=== PATIENT | male | born 1950 | race Two or more races ===

== ENCOUNTER → 2024-05-31 | Outpatient (CLI) | payer OTHER, SELFPAY ==
[2024-05-31 08:25] LABS: Basophils % (Auto) 1 % (0-2.5); Eosinophils # (Auto) 0.2 Thou/mm3 (0.0-0.5); Eosinophils % (Auto) 2 % (0-10); Hematocrit 37.5 % (41.0-53.0); Hemoglobin 12.5 g/dL (13.5-16.0); Immature Granulocytes % (Auto) 0 % (0-0); Immature Granulocytes Auto 0.02 Thou/mm3 (0.00-0.00); Lymphocytes # (Auto) 2.4 Thou/mm3 (1.0-4.8); Lymphocytes % (Auto) 38 % (10-50); Mean Corpuscular HGB Conc 33.3 g/dl (31.0-37.0); Mean Corpuscular Volume 87 fL (80-100); Monocytes # (Auto) 0.6 Thou/mm3 (0.0-0.8); Monocytes % (Auto) 10 % (0-12); Neutrophils # (Auto) 3.1 Thou/mm3 (1.8-7.7); Neutrophils % (Auto) 49 % (37-80); Nucleated Red Blood Cell % 0 /100 WBC (0); Platelet Count 207 Thou/mm3 (140-440); RDW Standard Deviation 42.1 fL (35.1-43.9); Red Blood Count 4.31 Miln/mm3 (4.50-5.90); White Blood Count 6.4 Thou/mm3 (3.8-10.6)
[2024-05-31 08:38] LABS: Glucose Estimated Average 137 mg/dL (80-131); Hemoglobin A1C 6.4 % Hgb (4.8-6.0)
[2024-05-31 08:48] LABS: Creatinine MALB Rnd Ur 70 mg/dL (30-125); Microalbumin, Random Urine < 3 mg/L (0-300)
[2024-05-31 08:52] LABS: Alanine Aminotransferase 15 U/L (10-49); Albumin, Serum 4.3 gm/dL (3.4-4.8); Albumin/Globulin Ratio 1.9 (1.2-2.2); Alkaline Phosphatase 133 U/L (46-116); Anion Gap 7 (7-16); Aspartate Amino Transferase 18 U/L (0-34); BUN/Creatinine Ratio 15 Ratio (12-20); Bilirubin,Total 0.6 mg/dL (0.3-1.2); Blood Urea Nitrogen 17 mg/dL (9-23); Calcium 9.6 mg/dL (8.3-10.6); Calcium (Corrected) 9.6 mg/dL (8.5-10.1); Carbon Dioxide 30.9 mMol/L (20.0-31.0); Cardiac Risk Estimate 3.9 RATIO (4.0-6.7); Chloride 101 mMol/L (98-107); Cholesterol 166 mg/dL (132-200); Creatinine (Component) 1.1 mg/dL (0.6-1.3); Globulin 2.3 gm/dL (2.3-3.5); Glucose 111 mg/dL (74-106); HDL Cholesterol 43 mg/dL (40-60); LDL Cholesterol,Calculated 68 mg/dL (0-130); Osmolality,Calculated 280 (275-295); Potassium 3.9 mMol/L (3.4-5.1); Sodium 139 mMol/L (136-145); Thyroid Stimulating Hormone 0.95 uIU/mL (0.55-4.78); Total Protein 6.6 gm/dL (5.7-8.2); Triglycerides 273 mg/dL (30-150); eGFR > 60 See Note
== END | disposition home or self-care (01) ==
PROVIDERS: PCP Nurse Practitioner Family; Referring Provider Nurse Practitioner Family; Visit Provider Nurse Practitioner Family
DX: Z00.00 Encounter for general adult medical examination without abnormal findings (principal); E78.2 Mixed hyperlipidemia; Z79.899 Other long term (current) drug therapy
CPT/HCPCS: 36415; 80053; 80061; 82043; 82570; 83036; 84443; 85025

== ENCOUNTER → 2024-08-13 | Outpatient (CLI) | payer OTHER, SELFPAY ==
[2024-08-13 10:48] LABS: Prostate Specific Antigen 0.27 ng/mL (0-4.00)
== END | disposition home or self-care (01) ==
LOC: COPL 09:10
PROVIDERS: PCP Nurse Practitioner Family; Referring Provider Urology; Visit Provider Urology
DX: N40.1 Benign prostatic hyperplasia with lower urinary tract symptoms (principal)
CPT/HCPCS: 36415; 84153

== ENCOUNTER → 2024-09-07 | Outpatient (BNVA) | payer OTHER, SELFPAY | END | disposition home or self-care (01) | PROVIDERS: PCP Nurse Practitioner Family; Referring Provider Nurse Practitioner Family; Visit Provider Urology | DX: N40.1 Benign prostatic hyperplasia with lower urinary tract symptoms (principal); N13.8 Other obstructive and reflux uropathy; Z87.440 Personal history of urinary (tract) infections; I10 Essential (primary) hypertension; I25.10 Atherosclerotic heart disease of native coronary artery without angina pectoris; E66.9 Obesity, unspecified; Z68.26 Body mass index [BMI] 26.0-26.9, adult; E78.00 Pure hypercholesterolemia, unspecified; I25.2 Old myocardial infarction; K21.9 Gastro-esophageal reflux disease without esophagitis | CPT/HCPCS: 81003; 99212; G0463 ==

== ENCOUNTER → 2024-09-15 | Outpatient (CLI) | payer OTHER, SELFPAY ==
[2024-09-15 08:06] LABS: Collection Type, Urine Clean Catch; Squamous Epithelial Cell,Urine 0 /hpf (0-5)
[2024-09-15 08:33] LABS: Basophils % (Auto) 1 % (0-2.5); Eosinophils # (Auto) 0.1 Thou/mm3 (0.0-0.5); Eosinophils % (Auto) 2 % (0-10); Hematocrit 36.3 % (41.0-53.0); Hemoglobin 12.3 g/dL (13.5-16.0); Immature Granulocytes % (Auto) 0 % (0-0); Immature Granulocytes Auto 0.01 Thou/mm3 (0.00-0.00); Lymphocytes # (Auto) 2.3 Thou/mm3 (1.0-4.8); Lymphocytes % (Auto) 36 % (10-50); Mean Corpuscular HGB Conc 33.9 g/dl (31.0-37.0); Mean Corpuscular Volume 86 fL (80-100); Monocytes # (Auto) 0.5 Thou/mm3 (0.0-0.8); Monocytes % (Auto) 8 % (0-12); Neutrophils # (Auto) 3.5 Thou/mm3 (1.8-7.7); Neutrophils % (Auto) 54 % (37-80); Nucleated Red Blood Cell % 0 /100 WBC (0); Platelet Count 183 Thou/mm3 (140-440); RDW Standard Deviation 46.1 fL (35.1-43.9); Red Blood Count 4.24 Miln/mm3 (4.50-5.90); White Blood Count 6.4 Thou/mm3 (3.8-10.6)
[2024-09-15 08:35] LABS: Bilirubin,Urine Negative (Negative); Blood,Urine Negative (Negative); Clarity,Urine Clear (Clear/Hazy); Color,Urine Lt-Yellow (Lt Yel-Yel); Glucose, Urine Negative (Negative); Ketones,Urine Negative (Negative); Leukocyte Esterase,Urine Negative (Negative); Nitrite,Urine Negative (Negative); Protein,Urine Negative (Neg - Trace); RBC,Urine 1 /hpf (0-3); Specific Gravity,Urine 1.016 (1.001-1.035); Urobilinogen,Urine Negative mg/dL (0.0-1.0); WBC,Urine < 1 /hpf (0-5)
[2024-09-15 09:33] LABS: Glucose Estimated Average 134 mg/dL (80-131); Hemoglobin A1C 6.3 % Hgb (4.8-6.0)
[2024-09-15 09:34] LABS: Creatinine MALB Rnd Ur 68 mg/dL (30-125); Creatinine,Random Urine 68 mg/dL (30-125); Microalbumin, Random Urine < 3 mg/L (0-300)
[2024-09-15 09:53] LABS: Alanine Aminotransferase 16 U/L (10-49); Albumin, Serum 4.1 gm/dL (3.4-4.8); Albumin/Globulin Ratio 1.6 (1.2-2.2); Alkaline Phosphatase 117 U/L (46-116); Anion Gap 9 (7-16); Aspartate Amino Transferase 22 U/L (0-34); BUN/Creatinine Ratio 19 Ratio (12-20); Bilirubin,Total 0.9 mg/dL (0.3-1.2); Blood Urea Nitrogen 19 mg/dL (9-23); Carbon Dioxide 28.1 mMol/L (20.0-31.0); Cardiac Risk Estimate 3.1 RATIO (4.0-6.7); Chloride 105 mMol/L (98-107); Cholesterol 165 mg/dL (132-200); Globulin 2.5 gm/dL (2.3-3.5); Glucose 91 mg/dL (74-106); HDL Cholesterol 54 mg/dL (40-60); LDL Cholesterol,Calculated 76 mg/dL (0-130); Osmolality,Calculated 285 (275-295); Potassium 4.6 mMol/L (3.4-5.1); Sodium 142 mMol/L (136-145); Thyroid Stimulating Hormone 1.08 uIU/mL (0.55-4.78); Total Protein 6.6 gm/dL (5.7-8.2); Triglycerides 175 mg/dL (30-150); eGFR > 60 See Note
== END | disposition home or self-care (01) ==
LOC: COPL 07:27
PROVIDERS: PCP Nurse Practitioner Family; Referring Provider Nurse Practitioner Family; Visit Provider Nurse Practitioner Family
DX: E11.65 Type 2 diabetes mellitus with hyperglycemia (principal); E78.2 Mixed hyperlipidemia; Z79.899 Other long term (current) drug therapy
CPT/HCPCS: 36415; 80053; 80061; 81001; 82043; 82570; 83036; 84443; 85025

== ENCOUNTER 2024-11-23 07:05 | Day surgery (SDC) | payer OTHER, MEDICAID, SELFPAY ==
--- NOTE | 2024-11-22 07:00 | EKG_ITS ---
[facility] Test Date: 2024-11-23 Pat Name: OSCAR HOUSER Department: Room: - Gender: Male Diabetes Physician: : 1950 Requested By: Alexis Cota Order Number: [id number] Reading MD: Alexis Cota Measurements Intervals Dema Rate: 65 P: 34 CO: 183 QRS: -15 QRSD: 95 T: 49 QT: 422 QTc: 442 Interpretive Statements SINUS RHYTHM INFERIOR MYOCARDIAL INFARCTION , PROBABLY OLD Compared to ECG 10/31/2022 18:27:25 Myocardial infarct finding now present Ventricular premature complex(es) no longer present ST (T wave) deviation no longer present /store/S0/[id number]/ecg/[id number].pdf
[2024-11-23] VITALS (27 sets, daily range): BP systolic 115–162; BP diastolic 60–89; PULSE 50–75; RESP 12–20; TEMP 36.2–36.8; O2SAT 95–99; BMI 38.2
[2024-11-23 07:30] LABS: Basophils % (Auto) 0 % (0-2.5); Eosinophils # (Auto) 0.1 Thou/mm3 (0.0-0.5); Eosinophils % (Auto) 1 % (0-10); Hematocrit 39.3 % (41.0-53.0); Hemoglobin 13.2 g/dL (13.5-16.0); Immature Granulocytes % (Auto) 1 % (0-0); Immature Granulocytes Auto 0.06 Thou/mm3 (0.00-0.00); Lymphocytes # (Auto) 2.8 Thou/mm3 (1.0-4.8); Lymphocytes % (Auto) 39 % (10-50); Mean Corpuscular HGB Conc 33.6 g/dl (31.0-37.0); Mean Corpuscular Hemoglobin 29.7 pg (25.0-35.0); Mean Corpuscular Volume 88 fL (80-100); Monocytes # (Auto) 0.6 Thou/mm3 (0.0-0.8); Monocytes % (Auto) 8 % (0-12); Neutrophils # (Auto) 3.7 Thou/mm3 (1.8-7.7); Neutrophils % (Auto) 51 % (37-80); Nucleated Red Blood Cell % 0 /100 WBC (0); Platelet Count 190 Thou/mm3 (140-440); RDW Standard Deviation 45.8 fL (35.1-43.9); Red Blood Count 4.45 Miln/mm3 (4.50-5.90); White Blood Count 7.2 Thou/mm3 (3.8-10.6)
[2024-11-23 07:42] LABS: Anion Gap 9 (7-16); BUN/Creatinine Ratio 14 Ratio (12-20); Blood Urea Nitrogen 14 mg/dL (9-23); Calcium 9.1 mg/dL (8.3-10.6); Carbon Dioxide 29.2 mMol/L (20.0-31.0); Chloride 106 mMol/L (98-107); Estimated Creatinine Clearance 50.6 mL/min (>60); Glucose 123 mg/dL (74-106); Osmolality,Calculated 288 (275-295); Potassium 4.2 mMol/L (3.4-5.1); Sodium 144 mMol/L (136-145); eGFR > 60 See Note
[2024-11-23 09:45] LABS: Partial Thromboplastin Time 29.3 Seconds (22.0-36.0); Prothrombin Time 10.9 Seconds (9.0-12.2)
--- NOTE | 2024-11-23 14:48 | PC.NURSE ---
1015 patient is awake, alert, breathing unlabored, s/p LHC by Dr. Ramirez, arterial sheath present to right groin, no bleeding noted. Report received from Darwin SHEIKH, patient to to recover for 6 hours post hemostasis time. ACT to be checked at 1130, ok to remove sheath once ACT less than 150. Patient already takes aspirin at home and can continue aspirin tomorrow, new medication brilinta will be called in by MD, first dose to be started tonight and twice a day starting tomorrow. 1140 ACT 183 1221 ACT 167, Dr. Ramirez notified, ok to remove right groin arterial sheath 1229 arterial sheath removed, manual pressure removed 1249 manual pressure removed, hemostasis obtained, site covered with gauze and tegaderm, no active bleeding or hematoma noted, sandbag applied. 1335 sand bag removed, no bleeding or hematoma noted to right groin, report given to darwin SHEIKH 1420 report received from Darwin SHEIKH, dressing to right groin dry with no bleeding or hematoma
--- NOTE | 2024-11-23 18:51 | PC.NURSE ---
1849 patient is awake, alert, breathing unlabored, dressing to right groin dry with no bleeding or hematoma, patient able to tolerate lunch and dinner tray with no nausea or vomiting, able to ambulate to bathroom and void, meet discharge criteria, discharge instructions given to patient, and daughter via vincentian interprter, patient discharged home in wheelchair with all belongings.
--- NOTE | 2024-11-24 01:36 | ESOP_ITS ---
RE: OSCAR HOUSER : 1950 DATE OF OPERATION: 11/23/2024 PROCEDURE PERFORMED: 1. Diagnostic left heart cardiac catheterization and selective coronary angiogram and left ventricular angiogram, CPT 77416. 2. Selective cannulation of left internal mammary artery and left internal mammary artery angiography, CPT 48669. 3. PTCA and percutaneous transluminal coronary angioplasty of distal left main coronary artery and proximal left anterior descending coronary artery. josé [id number] 4. Conscious sedation for one hour duration. 5. Iliofemoral angiogram. 6. Ultrasound guided access to right femoral artery. DIAGNOSES: CAD status post bypass graft surgery, angina pectoris, and abnormal stress test. HISTORY AND INDICATIONS: The patient is a 74-year-old male with past medical history of known CAD, status post bypass graft surgery in [address] Erickson Cardenas in [facility], admitted with shortness of breath, left arm chest discomfort and chest tightness on exertion. Nuclear scan showed evidence of inferolateral ischemia, hence coronary coronary angiogram was recommended to assess the patient is a candidate for coronary intervention. DESCRIPTION OF PROCEDURE: The patient was brought to cardiac catheterization laboratory. He was given 2 mg Versed and 100 mcg fentanyl for conscious sedation given. Right femoral approach taken. Ultrasound guidance access was performed in the right femoral artery and as 5- Danish sheath introduced, diagnostic right and left coronary angiogram performed by FR4 FL4 diagnostic catheter. Bypass graft circumflex artery was performed by using FR4 diagnostic catheter. FR4 diagnostics catheter was used to perform left heart catheterization and left ventricular angiogram. Subsequently, subclavian artery and left internal mammary was engaged and left internal mammary LAD angiogram was performed. Subsequent iliofemoral angiogram was performed. The patient tolerated the procedure well. No complications. Diagnostic procedures following findings: Right coronary artery large and dominant showed evidence of mild to moderate plaque calcification in the proximal mid segment of 30% narrowing, use of extensive collaterals to left circumflex artery, distal circumflex artery. Left main coronary artery showed heavy calcification. There is evidence of distal left main stenosis about 80% to 90% stenosis distal left main before trifurcating the circumflex artery, ramus intermedius, and LAD. Left anterior descending artery is totally occluded after giving a large diagonal branch in the proximal segment just close to the cloth cutter. Ramus intermedius origin showed moderate disease at 2.5 mm vessel. Circumflex artery is totally occluded. Vein graft circumflex area is completely occluded, but circumflex and obtuse marginal branch filling via collaterals from RCA. The left internal mammary artery LAD is widely patent with excellent filling of mid and distal . The patient does have significant left main disease, which is protected with diagonal and ramus intervention. Angioplasty was recommended. Though there is heavy calcification, I felt this could be done with low-risk procedure . Left heart catheterization shows LV pressure 126/10, aortic pressure 126/80. No gradient across aortic valve. The left ventricular angiogram shows normal left ventricular wall motion ejection fraction 60%. Following diagnostic procedure intervention, the patient was given IV heparin. ACT was more than 350. Heparin 5000 units was given. Initially FL4 guiding catheter used, no adequate support, hence the 6-Danish EBU 3.5 guiding catheter was used to cannulate the left main coronary artery, 0.014 run through guidewire was used to cross the lesion successfully, placed in diagonal branch of LAD. The distal left anterior descending artery dilated using a 3 mm angioplasty balloon catheter successfully and I was unable to deploy a stent. There was some calcification, possibly haziness of the large 2.5 to 3 mm ramus intermedius. I attempted several guidewires including Stab Setter And Driller 50 and Samurai wires could not selectively engage this vessel, even used the SuperCross 45 and 90 microcatheter to support and guide could not cross the lesion. Subsequently, a 3.0 x 12 mm noncompliant balloon was used to dilate the distal left main coronary artery. I was able to dilate, the balloon is expanding well; however, the vessel is very noncompliant and quite difficult to navigate via NC balloons, hence I felt that even IVL balloon would not cross. Attempts were made to cross the lesion with a 3.0 x 18 Medtronic drug-eluting stent could not cross the lesion. At this point, I felt that this will be managed medically. The patient did not have any significant disruption since [place]-3 flow was still . The PTCA results were satisfactory at this point and the procedure. iliofemoral angiogram performed. Manual compression applied to have sheath removed later on. SUMMARY OF FINDINGS: 1. Severe triple vessel coronary artery disease with RCA mild to moderate disease, filling collateral circumflex artery. 2. Left anterior descending artery dysfunctional occluded, [place]ILL[place] to LAD widely clear. 3. Distal left main protected left main 80% to 90% stenosis pre-procedure and underwent successful angioplasty, balloon angioplasty only. No stent was placed. Post angioplasty result was satisfactory with 25% residual stenosis. 4. Pre and post procedure [place] flow 3. Complications none. RECOMMENDATIONS: The patient will continue aspirin and Brilinta. Loading dose was given for at least 30 days since we disrupted the vessel. Subsequently, just aspirin alone and if he has significant angina pectoris, we will consider doing rotational atherectomy, possible IVL with rotational atherectomy IVL, but for now, I felt that the patient will be managed medically because of high-risk procedure. Risk of perforation is high with atherectomy as well. DT: 23:53:29 TT: 00:37:00 Ref: [id number] - TID: [id number] MTDD
== END 2024-11-23 18:49 | disposition home or self-care (01) ==
PROVIDERS: PCP Nurse Practitioner Family; Referring Provider Internal Medicine Cardiovascular Disease; Visit Provider Internal Medicine Cardiovascular Disease
PROC: (CPT 93459; principal; 2024-11-23 07:30)
DX: T82.858A Stenosis of other vascular prosthetic devices, implants and grafts, initial encounter (principal); I25.118 Atherosclerotic heart disease of native coronary artery with other forms of angina pectoris; Z95.1 Presence of aortocoronary bypass graft; E78.00 Pure hypercholesterolemia, unspecified; I10 Essential (primary) hypertension
CPT/HCPCS: 93459; 36216; 92920; G0278; 36415; 80048; 85025; 85347; 85610; 85730; 93005; 99152; 99153; A4649; C1725; C1769; C1874; C1887; C1894; J0171; J0461; J1643; J2250; J2310; J2371; J3010; J3490; A9270; J2305

== ENCOUNTER → 2024-12-22 | Outpatient (CLI) | payer OTHER, MEDICAID, SELFPAY ==
[2024-12-22 08:43] LABS: Basophils # (Auto) 0.0 Thou/mm3 (0.0-0.2); Basophils % (Auto) 0 % (0-2.5); Eosinophils # (Auto) 0.1 Thou/mm3 (0.0-0.5); Eosinophils % (Auto) 1 % (0-10); Hematocrit 35.2 % (41.0-53.0); Hemoglobin 12.7 g/dL (13.5-16.0); Immature Granulocytes Auto 0.02 Thou/mm3 (0.00-0.00); Lymphocytes # (Auto) 2.0 Thou/mm3 (1.0-4.8); Lymphocytes % (Auto) 36 % (10-50); Mean Corpuscular HGB Conc 36.1 g/dl (31.0-37.0); Mean Corpuscular Hemoglobin 30.4 pg (25.0-35.0); Mean Corpuscular Volume 84 fL (80-100); Monocytes # (Auto) 0.5 Thou/mm3 (0.0-0.8); Monocytes % (Auto) 8 % (0-12); Neutrophils # (Auto) 3.0 Thou/mm3 (1.8-7.7); Neutrophils % (Auto) 54 % (37-80); Nucleated Red Blood Cell # 0.00 Thou/mm3 (0.00-0.00); Nucleated Red Blood Cell % 0 /100 WBC (0); Platelet Count 230 Thou/mm3 (140-440); RDW Standard Deviation 43.4 fL (35.1-43.9); Red Blood Count 4.18 Miln/mm3 (4.50-5.90); White Blood Count 5.6 Thou/mm3 (3.8-10.6)
[2024-12-22 09:10] LABS: Alanine Aminotransferase 16 U/L (10-49); Albumin, Serum 4.4 gm/dL (3.4-4.8); Albumin/Globulin Ratio 1.8 (1.2-2.2); Alkaline Phosphatase 114 U/L (46-116); Anion Gap 6 (7-16); Aspartate Amino Transferase 22 U/L (0-34); BUN/Creatinine Ratio 9 Ratio (12-20); Bilirubin,Total 1.6 mg/dL (0.3-1.2); Blood Urea Nitrogen 9 mg/dL (9-23); Calcium 9.4 mg/dL (8.3-10.6); Calcium (Corrected) 9.4 mg/dL (8.5-10.1); Carbon Dioxide 27.9 mMol/L (20.0-31.0); Cardiac Risk Estimate 2.5 RATIO (4.0-6.7); Chloride 101 mMol/L (98-107); Cholesterol 165 mg/dL (132-200); Creatinine (Component) 1.0 mg/dL (0.6-1.3); Globulin 2.5 gm/dL (2.3-3.5); Glucose 97 mg/dL (74-106); HDL Cholesterol 65 mg/dL (40-60); LDL Cholesterol,Calculated 72 mg/dL (0-130); Osmolality,Calculated 268 (275-295); Potassium 3.8 mMol/L (3.4-5.1); Sodium 135 mMol/L (136-145); Total Protein 6.9 gm/dL (5.7-8.2); Triglycerides 138 mg/dL (30-150); eGFR > 60 See Note
[2024-12-22 10:05] LABS: INR 1.0 (0.9-1.3); Partial Thromboplastin Time 27.6 Seconds (22.0-36.0); Prothrombin Time 10.8 Seconds (9.0-12.2)
== END | disposition home or self-care (01) ==
LOC: COPL 07:29
PROVIDERS: PCP Nurse Practitioner Family; Referring Provider Nurse Practitioner Family; Visit Provider Nurse Practitioner Family
DX: R23.3 Spontaneous ecchymoses (principal); Z79.01 Long term (current) use of anticoagulants
CPT/HCPCS: 36415; 80053; 80061; 85025; 85610; 85730

== ENCOUNTER → 2025-01-13 | Outpatient (CLI) | payer OTHER, MEDICAID, SELFPAY ==
[2025-01-13 16:57] LABS: Syphilis Nonreactive (Nonreactive)
[2025-01-14 14:10] LABS: Chlamydia trachomatis PCR Negative (Not Detect); Neisseria Gonorrhoeae DNA PCR Negative (Not Detect); Trichomonas Negative (Negative)
[2025-01-18 17:49] LABS: HSV1 IgG Type Specific Ab 54.60 INDEX
[2025-01-19 06:39] LABS: HIV Ag/Ab, 4th Gen NON-REACTIVE; HSV2 IgG Type Specific Ab <0.90 INDEX
== END | disposition home or self-care (01) ==
LOC: COPL 15:48
PROVIDERS: PCP Nurse Practitioner Family; Referring Provider Nurse Practitioner Family; Visit Provider Nurse Practitioner Family
DX: K62.89 Other specified diseases of anus and rectum (principal); Z11.3 Encounter for screening for infections with a predominantly sexual mode of transmission
CPT/HCPCS: 36415; 86695; 86696; 86780; 87389; 87491; 87591; 87661

== ENCOUNTER 2025-01-27 13:01 | Outpatient (AMB) | payer OTHER, MEDICAID, SELFPAY ==
--- NOTE | 2025-01-27 13:08 | GSCOFFNT_ITS ---
Vital Signs - [facility] 01/27/25 13:13 Height 1.63 m Height Method Stated Weight 69.059 kg Weight Measurement Method Standing Scale BMI 25.9 BP 150/79 H Blood Pressure Source Automatic Cuff Blood Pressure Location Left Upper Arm Position Sitting Respiration 18 Pulse 63 Pulse Source Monitor Temp 97.7 F Temp Source Temporal Artery Scan Pulse Oximetry (%) 98 Oxygen Delivery Method Room Air Med/Allergies Allergies & Medications Allergies NKA* Allergy (Uncoded 01/27/25 13:14) Medication Reconciliation atorvastatin 40 mg tablet 40 mg PO QDAY 11/04/17 [History Confirmed 01/27/25] tamsulosin 0.4 mg capsule 0.4 mg PO QHS 03/18/23 [History Confirmed 01/27/25] aspirin 81 mg tablet,delayed release 81 mg PO QDAY 09/09/23 [History Confirmed 01/27/25] metoprolol tartrate 25 mg tablet 25 mg PO BID 11/23/24 [History Confirmed 01/27/25] imiquimod 5 % topical cream packet 1 applic topical .3x per week #24 ea 01/27/25 [Rx] MA Intake Visit Data Collection New Patient or Established: New Patient (never been to [facility]) Seen by Clinical Staff ONLY (RN/MA): No Pain Present Currently: No Panel Beater Required: Yes PCP or OBGYN visit in last 3 months: Yes Hx Now: No Do You Feel Safe at Home: Yes Authorities Contacted: N/A Smoking Status Smoking Status: Never smoker Immunization / Flu Flu Vaccine in the Last 12 Months: Yes Flu Vaccine Exclusion Criteria: Already Received Past Medical History Past Medical History NEUROLOGIC: Negative Neurological Disorders or Seizures CARDIAC: Positive Cardiac Disorders, Myocardial Infarction, Coronary Artery Disease, Hypercholesterolemia and Hypertension; Negative Congestive Heart Failure RESPIRATORY: Negative Chronic Obstructive Pulmonary Disease (COPD) GASTROINTESTINAL: Positive Gastrointestinal Disorders, Hemorrhoids and Gastroesophageal Reflux Disease; Negative Hepatitis GENITOURINARY: Positive Genitourinary Disorders; Negative Renal Disease ENT: Positive Cataracts ENDOCRINE: Negative Endocrine Disorders, Diabetes Mellitus Type 1 or Diabetes Mellitus Type 2 HEMATOLOGIC: Negative Blood Disorders PSYCHO/SOCIAL: Positive Anxiety OTHER HISTORY: Positive Shingles and Blood Transfusions; Negative Hospitalization, Falls, Blood Transfusion Reaction, Anesthesia Reactions, Chemotherapy, Radiation Therapy, MRSA, Chicken Pox, Measles, Mumps or Cancer Surgical History SURGICAL: Positive Cardiac Surgery, Open Heart Surgery, Coronary Artery Bypass Graft (2012), Angiogram and Transurethral Resection (2022); Negative Endocrine Surgery or Abdominal Surgery Social History SMOKING STATUS: Smoking status: Never smoker ALCOHOL: Alcohol Intake: Never HOUSING: Housing: House HPI HPI Narrative Spoke to pt with in-person and phone interpreters (pt preferred family to translate) 74M referred for perianal warts. Pt reports he has noticed them for the past 6 weeks and they are somewhat uncomfortable, but he has been using preparation H which provides some relief. 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 He was prescribed acyclovir which he began taking yesterday and has no other complaints. His last colonoscopy was in 2020 and he had a biopsy showing melanosis coli (the full report is not viewable but he also had one in 2018 which showed diverticulosis and hemorrhoids) ROS Review of Systems Systems Reviewed: All systems reviewed, normal except as documented Objective/Exam General General Appearance: alert, cooperative and well groomed Resp Respiratory exam: Absent respiratory distress Rectal Rectal exam: Present other (anal condyloma most concentrated at the anterior anus but visible throughout anal skin extending approx 1cm circumferentially, nontender with no bleeding) Assessment & Plan Diagnosis / Problem List (1) Anal condyloma: Status: Acute Assessment & Plan: 74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 I explained that the lesions can be treated topically with imiquimod cream 3x per week, to be used up to 16 weeks and will follow up in 2 mos. 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 ([id number]) Patient Portal Questionaires Social History Living Situation History Housing: House Tobacco History Smoking Status: Never smoker Alcohol History Alcohol Intake: Never Domestic Abuse History Do You Feel Safe at Home: Yes Review of Systems Report any current symptoms Only answer those that you have currently: Past Medical History Past Medical History Have you ever been diagnosed with any of the following: Neurological Problems Seizures: No Cardiology Problems Myocardial Infarction: Yes Coronary Artery Disease: Yes Hypercholesterolemia: Yes Congestive Heart Failure: No Hypertension: Yes Respiratory Problems Chronic Obstructive Pulmonary Disease (COPD): No Stomache/Intestinal Problems Hepatitis: No Hemorrhoids: Yes Gastroesophageal Reflux Disease: Yes Genital/Urinary Problems Renal Disease: No Head,Eye,Nose,Throat Problems Cataracts: Yes Endocrine Problems Diabetes Mellitus Type 1: No Diabetes Mellitus Type 2: No Psychologic Problems Anxiety: Yes Other Problems Hospitalization: No Shingles: Yes Falls: No Blood Transfusions: Yes Blood Transfusion Reaction: No Anesthesia Reactions: No Chemotherapy: No Radiation Therapy: No MRSA: No Chicken Pox: No Measles: No Mumps: No Cancer: No Surgical History Coronary Artery Bypass Graft: Yes (2012)
[2025-01-27 13:13] VITALS: BP 150/79; PULSE 63; RESP 18; TEMP 36.5; O2SAT 98; BMI 25.9
== END 2025-01-27 13:40 | disposition home or self-care (01) ==
LOC: HODSRG 13:01
PROVIDERS: PCP Nurse Practitioner Family; Referring Provider Nurse Practitioner Family; Supervising Provider Surgery; Visit Provider Surgery
DX: A63.0 Anogenital (venereal) warts (principal); I10 Essential (primary) hypertension; I25.10 Atherosclerotic heart disease of native coronary artery without angina pectoris; E78.00 Pure hypercholesterolemia, unspecified; I25.2 Old myocardial infarction; K21.9 Gastro-esophageal reflux disease without esophagitis; Z95.1 Presence of aortocoronary bypass graft
CPT/HCPCS: 99203; G0463

== ENCOUNTER → 2025-06-10 | Outpatient (CLI) | payer OTHER, MEDICAID, SELFPAY ==
[2025-06-10 09:41] LABS: Collection Type, Urine Clean Catch; Squamous Epithelial Cell,Urine 0 /hpf (0-5)
[2025-06-10 10:01] LABS: Basophils # (Auto) 0.0 Thou/mm3 (0.0-0.2); Basophils % (Auto) 1 % (0-2.5); Eosinophils # (Auto) 0.0 Thou/mm3 (0.0-0.5); Eosinophils % (Auto) 1 % (0-10); Hematocrit 38.9 % (41.0-53.0); Hemoglobin 12.8 g/dL (13.5-16.0); Immature Granulocytes Auto 0.02 Thou/mm3 (0.00-0.00); Lymphocytes # (Auto) 2.2 Thou/mm3 (1.0-4.8); Lymphocytes % (Auto) 31 % (10-50); Mean Corpuscular HGB Conc 32.9 g/dl (31.0-37.0); Mean Corpuscular Hemoglobin 28.6 pg (25.0-35.0); Mean Corpuscular Volume 87 fL (80-100); Monocytes # (Auto) 0.5 Thou/mm3 (0.0-0.8); Monocytes % (Auto) 7 % (0-12); Neutrophils # (Auto) 4.3 Thou/mm3 (1.8-7.7); Neutrophils % (Auto) 61 % (37-80); Nucleated Red Blood Cell # 0.00 Thou/mm3 (0.00-0.00); Nucleated Red Blood Cell % 0 /100 WBC (0); Platelet Count 215 Thou/mm3 (140-440); RDW Standard Deviation 44.8 fL (35.1-43.9); Red Blood Count 4.47 Miln/mm3 (4.50-5.90); White Blood Count 7.1 Thou/mm3 (3.8-10.6)
[2025-06-10 10:07] LABS: Bilirubin,Urine Negative (Negative); Blood,Urine Negative (Negative); Clarity,Urine Clear (Clear/Hazy); Color,Urine Lt-Yellow (Lt Yel-Yel); Glucose, Urine Negative (Negative); Ketones,Urine Negative (Negative); Leukocyte Esterase,Urine Negative (Negative); Nitrite,Urine Negative (Negative); PH,Urine 6.0 (5.0-7.0); Protein,Urine Negative (Neg - Trace); RBC,Urine 4 /hpf (0-3); Specific Gravity,Urine 1.018 (1.001-1.035); Urobilinogen,Urine Negative mg/dL (0.0-1.0); WBC,Urine < 1 /hpf (0-5)
[2025-06-10 10:12] LABS: Glucose Estimated Average 137 mg/dL (80-131); Hemoglobin A1C 6.4 % Hgb (4.8-6.0)
[2025-06-10 10:15] LABS: Prostate Specific Antigen 0.25 ng/mL (0-4.00)
[2025-06-10 10:19] LABS: Creatinine MALB Rnd Ur 104 mg/dL (30-125); Microalbumin Creat Ratio 5 mg/gCrea (<30); Microalbumin, Random Urine 5 mg/L (0-300)
[2025-06-10 10:21] LABS: Vitamin D 25 Hydroxy Total 42.7 ng/mL (7.3-40.2)
[2025-06-10 10:24] LABS: Alanine Aminotransferase 17 U/L (10-49); Albumin, Serum 4.7 gm/dL (3.4-4.8); Albumin/Globulin Ratio 1.7 (1.2-2.2); Alkaline Phosphatase 123 U/L (46-116); Anion Gap 11 (7-16); Aspartate Amino Transferase 22 U/L (0-34); BUN/Creatinine Ratio 17 Ratio (12-20); Bilirubin,Total 0.8 mg/dL (0.3-1.2); Blood Urea Nitrogen 20 mg/dL (9-23); Calcium 9.3 mg/dL (8.3-10.6); Calcium (Corrected) 9.3 mg/dL (8.5-10.1); Carbon Dioxide 27.8 mMol/L (20.0-31.0); Cardiac Risk Estimate 2.6 RATIO (4.0-6.7); Chloride 103 mMol/L (98-107); Cholesterol 168 mg/dL (132-200); Creatinine (Component) 1.2 mg/dL (0.6-1.3); Globulin 2.8 gm/dL (2.3-3.5); Glucose 114 mg/dL (74-106); HDL Cholesterol 64 mg/dL (40-60); LDL Cholesterol,Calculated 86 mg/dL (0-130); Osmolality,Calculated 286 (275-295); Potassium 4.2 mMol/L (3.4-5.1); Sodium 142 mMol/L (136-145); Total Protein 7.5 gm/dL (5.7-8.2); Triglycerides 92 mg/dL (30-150); eGFR > 60 See Note
== END | disposition home or self-care (01) ==
LOC: COPL 08:17
DX: I10 Essential (primary) hypertension (principal); E11.65 Type 2 diabetes mellitus with hyperglycemia
CPT/HCPCS: 36415; 80053; 80061; 81001; 82043; 82306; 82570; 83036; 84153; 85025